=== PATIENT | female | born 1950 | race Caucasian/White ===

== ENCOUNTER → 2018-01-08 | Outpatient (CLI) | payer MEDICARE, BC ==
[~2018-01-08] MED LIST: ASPIRIN325 PO; CELEXA10 MG PO; HYDROCHLOROTH12.5 M2 PO; LOPRESSOR25 PO; NORCO 5-325 TA1 EACH PO; OXYCODONE HCL 55 MG PO; PERCOCET PO; XARELTO10 MG PO
== END ==
LOC: M.RAD 14:19
DX: M89.9 Disorder of bone, unspecified (principal); M80.00XA Age-related osteoporosis with current pathological fracture, unspecified site, initial encounter for fracture; Z90.722 Acquired absence of ovaries, bilateral

== ENCOUNTER → 2020-02-12 | Outpatient (CLI) | payer MEDICARE, BC | LOC: M.RAD 14:14 | PROVIDERS: ATTEND Family Medicine | DX: Z12.31 Encounter for screening mammogram for malignant neoplasm of breast (principal) ==

== ENCOUNTER 2020-04-25 09:00 | Emergency (ER) | payer MEDICARE, BC ==
[~2020-04-25] VITALS: Ht 167.6 cm; Wt 90.1 kg
[2020-04-25] MEDS ORDERED: CARVEDILOL12.5 MG PO (09:07)
[2020-04-25] MEDS ORDERED: PERCOCET 5-3251 EACH PO (09:56)
[2020-04-25 11:39] VITALS: BP 119/58
[2020-04-28] MEDS ORDERED: NORVASC5 MG PO (12:14)
== END 2020-04-25 11:39 | disposition home or self-care (01) ==
LOC: M.ERS 09:00
DX: S93.05XA Dislocation of left ankle joint, initial encounter (principal); S82.842A Displaced bimalleolar fracture of left lower leg, initial encounter for closed fracture; I10 Essential (primary) hypertension; Z90.710 Acquired absence of both cervix and uterus; Z96.642 Presence of left artificial hip joint; Z88.1 Allergy status to other antibiotic agents; W00.0XXA Fall on same level due to ice and snow, initial encounter; Y93.89 Activity, other specified; Y92.89 Other specified places as the place of occurrence of the external cause; Y99.8 Other external cause status

== ENCOUNTER → 2020-05-06 | Day surgery (SDC) | payer MEDICARE, BC ==
[~2020-05-06] MED LIST changes: +CARVEDILOL12.5 MG PO; +NORVASC5 MG PO; +PERCOCET 5-3251 EACH PO
--- NOTE | ~2020-05-06 | OP ---
[facility] [place] [address] OPERATIVE REPORT Name: APRILDENISA Wyman Room: [facility]#: [id number] Admission: 05/06/20 Attend Phys: Elisa Vasquez DO Discharge: Date of : 46 Report #: [id number] THIS REPORT FOR: cc: Yovanny Soria Adam J DO ~ Elisa Vasquez DO DATE OF SERVICE: 05/06/2020 Tylor Fox DO dictating for Elisa Vasquez DO. PREOPERATIVE DIAGNOSIS: Left trimalleolar ankle fracture. POSTOPERATIVE DIAGNOSIS: Left trimalleolar ankle fracture. PROCEDURE: 1. Open reduction and internal fixation of left ankle fracture. 2. Physician-guided fluoroscopy less than 1 hour. SURGEON: Elisa Vasquez DO CAD SPECIALIST: 1. Tylor Fox DO 2. Chemo Mendoza DO ANESTHESIA: General with popliteal block. FLUIDS: Crystalloids. ESTIMATED BLOOD LOSS: 10 mL. COMPLICATIONS: None. CONDITION: Stable. DISPOSITION: PACU to home. PREOPERATIVE ANTIBIOTICS: 2 g Ancef. INDICATIONS FOR PROCEDURE: The patient is a 70-year-old female who suffered a ground level fall 10 days ago. She was seen in the Emergency Department and imaging showed a trimalleolar ankle fracture. Surgery was discussed with the patient and recommended for stabilization of her injury. Risks, complications, alternatives were discussed with her and could be found in the clinic note. A decision was made to proceed with surgery. [address] [address] OPERATIVE REPORT Name: DENISA CHEN Room: [facility]#: [id number] Admission: 05/06/20 Attend Phys: Elisa Vasquez DO Discharge: Date of : 46 Report #: [id number] DESCRIPTION OF PROCEDURE: The patient was seen in the preoperative area and the operative site was marked. She was transferred to the operating suite and placed in prone position on the operating table. A pneumatic tourniquet was placed to the left thigh. 2 g of Ancef were given to the patient. The patient was given the benefit of general anesthesia. Left lower extremity was prepped and draped in the usual sterile fashion. Time-out was performed verifying correct patient, procedure, procedure site. All parties agreed. The left lower extremity was exsanguinated and then inflated to 250 mmHg for 60 minutes. Next, an incision through skin was made over the posterolateral aspect of the lower leg between the peroneal tendons and Achilles tendon. This was carried down past the ankle joint. Sharp dissection was carried through the subcutaneous tissue, protecting neurovascular structures. Fascia was then incised and sharp dissection was then carried down to the level of bone. The muscles were reflected off the posterior tibia and fibula again protecting neurovascular structures. Attention was then turned to the distal tibia. Fracture site was identified and a hemostat was used to remove fracture hematoma. A posterior distal tibial plate was then placed on the distal tibia and temporarily held in place with K-wire fixation. C-arm was then used to confirm appropriate reduction and position of the plate. After this appropriately sized locking and nonlocking screws were then drilled and placed distally and proximally in and the distal tibial plate. C-arm was then brought in to confirm appropriate plate position and reduction and screw lengths. At this point, the K-wires were then removed and attention was then turned to the distal fibula. Fracture hematoma was removed from the fracture site with hemostat. Again, a posterolateral distal fibular plate was then placed and held in place with K wires after reduction was performed. C-arm was brought in to confirm appropriate reduction and position of the plate. Again following this, appropriately sized locking and nonlocking screws were drilled, measured and placed within the plate. C-arm was then brought in to confirm appropriate position of the plate, fracture reduction and screw position. These were found to be in excellent position. Final images, AP and lateral were then taken and saved. The incision was then thoroughly irrigated with sterile saline. A deep layer was closed with a running 2-0 Vicryl suture. Subcutaneous tissue was closed with interrupted 2-0 Vicryl. Finally, skin was closed with a running 3-0 nylon suture. The tourniquet was let down for a total time of 60 minutes. Xeroform, 4 x 4's, ABD, soft roll, a plaster and a splint was then applied. The patient was then awakened from anesthesia and transferred off the operating table and back to PACU for recovery. Counts were verified correct x 2. Dr. Vasquez was present for the entirety of the case. By: [id number] Vasquez DO /nt
[2020-05-06 11:13] LABS: HEMATOCRIT 40.2 % (37.0-47.0); HEMOGLOBIN 13.7 gm/dL (12.0-15.0); MCH 31.1 pg (26.0-34.0); MCHC 34.1 g/dL (28.0-37.0); MPV 6.7 fl. (7.2-11.1); RBC 4.42 mil/uL (4.20-5.00); RDW-CV 12.1 % (10.5-14.5); WBC 6.2 thou/uL (4.0-11.0)
[2020-05-06 11:23] LABS: CALCIUM 9.5 mg/dL (8.5-10.1); CREATININE 0.9 mg/dL (0.6-1.3); POTASSIUM 3.5 mmol/L (3.5-5.1)
--- NOTE | 2020-05-06 13:02 | EKG ---
[place] [address] ELECTROCARDIOGRAM REPORT Name: DENISA CHEN Room: [facility]#: [id number] Admission: 05/06/20 Attend Phys: Elisa Vasquez DO Discharge: Date of : 46 Date of Service: 05/06/20 1202 Report #: [id number] THIS REPORT FOR: //name// [facility] Test Date: 2020-05-06 Test Time: 12:02:24 Pat Name: DENISA CHEN Department: Room: Gender: Bottle Machine Operator: : [id number] Requested By: Elisa Vasquez Order Number: [id number] Reading MD: Alcon Pedroza Measurements Intervals Graham Rate: 62 P: 62 NM: 170 QRS: 32 QRSD: 99 T: 39 QT: 437 QTc: 444 Interpretive Statements Sinus rhythm Compared to ECG 09/10/2013 08:40:38 Sinus bradycardia no longer present Electronically Signed On 05-06-2020 13:02:13 PROFESSIONAL ORGANIZER by Alcon Pedroza [email or web address] <ELECTRONICALLY SIGNED> By: Alcon Pedroza MD, [facility] 05/06/20 1302 1202 1202 Alcon Pedroza MD, FAC /EPI
== END | disposition home or self-care (01) ==
LOC: M.SUR 05:15
PROVIDERS: ATTEND Orthopaedic Surgery
DX: S82.852A Displaced trimalleolar fracture of left lower leg, initial encounter for closed fracture (principal); W17.89XA Other fall from one level to another, initial encounter; Y93.89 Activity, other specified; Y92.89 Other specified places as the place of occurrence of the external cause; Y99.8 Other external cause status; I10 Essential (primary) hypertension; Z87.891 Personal history of nicotine dependence; Z96.642 Presence of left artificial hip joint; Z90.710 Acquired absence of both cervix and uterus; Z79.899 Other long term (current) drug therapy